=== PATIENT | female | born 1955 | race African-American/Black ===

== ENCOUNTER 2018-08-20 20:51 | Inpatient (IN) | payer BC, MEDICARE ==
[~2018-08-20] VITALS: Ht 165.1 cm; Wt 108.9 kg
[2018-08-20] MEDS ORDERED: SODIUM CHLORIDE 0.9% 1,000 ML IV ONE (21:26)
[2018-08-20] MEDS ORDERED: NITROGLYCERIN OINT 1GM/INCH UDPKT TD ONE (21:30)
[2018-08-20 22:03] LABS: BASOPHILS % 0.9 % (0.0-2.0); HEMATOCRIT. 33.6 % (36.0-48.0); HEMOGLOBIN. 11.3 g/dL (12.0-16.0); LYMPHOCYTES % 38.7 % (20.0-50.0); MEAN CORPUSCULAR HEMOGLOBIN 31.4 pg (28.0-32.0); MEAN CORPUSCULAR VOLUME 93.6 fL (81.0-99.0); MEAN PLATELET VOLUME 7.1 fl (7.4-10.4); MONOCYTES % 8.1 % (2.0-8.0); NEUTROPHILS % 50.3 % (40.0-76.0); PLATELET 193 x1000/uL (130-400); RED BLOOD CELL COUNT 3.59 mill/uL (4.2-5.4); RED CELL DISTRIBUTION WIDTH 13.8 % (11.6-14.6)
[2018-08-20 22:15] LABS: CHLORIDE 106 mEq/L (98-107)
[2018-08-21] MEDS ORDERED: HYDROCODONE/ACETAMINOPHEN 10/325MG TABLET PO ONE (01:15)
[2018-08-21] MEDS ORDERED: GABAPENTIN 400MG CAPSULE PO ONE (01:15)
[2018-08-21] MEDS ORDERED: NA PHOS,M-B/NA PHOS,DI-BA ENEMA 118ML PR PRN (02:45)
[2018-08-21] MEDS ORDERED: CLONIDINE 0.1MG TABLET PO PRN ×2 (02:45→16:15)
[2018-08-21] MEDS ORDERED: MORPHINE SULFATE 4 MG/ML CPJ (NOT FOR IM USE) IV PRN (02:45)
[2018-08-21] MEDS ORDERED: DOCUSATE SODIUM 100MG CAPSULE PO PRN (02:45)
[2018-08-21] MEDS ORDERED: NITROGLYCERIN 0.4MG TABLET SL SL PRN (02:45)
[2018-08-21] MEDS ORDERED: ACETAMINOPHEN 325MG TABLET PO PRN (02:45)
[2018-08-21] MEDS ORDERED: ONDANSETRON HCL 4MG/2ML INJ IV PRN (02:45)
[2018-08-21] MEDS ORDERED: GUAIFENESIN 200MG/10ML SUGAR FREE UDC PO PRN (02:45)
[2018-08-21] MEDS ORDERED: MAGNESIUM/ALUMINUM HYDROXIDE/SIMETHICONE 30ML UDC PO PRN (02:45)
[2018-08-21] MEDS ORDERED: IPRATROPIUM/ALBUTEROL 0.5-3(2.5)MG/3ML NEB INH PRN (02:45)
[2018-08-21] MEDS ORDERED: IOHEXOL-350 100 ML BOTTLE ONE (03:46)
[2018-08-21] MEDS ORDERED: ENOXAPARIN 40MG/0.4ML SYR SUBCUT NR (04:00)
[2018-08-21 06:42] LABS: CREATINE KINASE MB FRACTION 3.7 ng/mL (0.5-3.6)
[2018-08-21] MEDS ORDERED: ASPIRIN 325MG EC TABLET PO SCH (09:00)
[2018-08-21] MEDS: TRAMADOL 50MG TABLET PO PRN ×2 (09:14→23:10)
[2018-08-21] MEDS: ASPIRIN 325MG EC TABLET PO SCH (12:00)
[2018-08-21] MEDS ORDERED: FAMOTIDINE 20MG TABLET PO NR (12:00)
[2018-08-21] MEDS ORDERED: POTASSIUM CHLORIDE 20MEQ TABLET SR PO NR ×2 (12:00→16:00)
[2018-08-21] MEDS ORDERED: ASPIRIN 325MG EC TABLET PO NR (12:30)
[2018-08-21 14:00] LABS: *AMPHETAMINES SCREEN URINE NEGATIVE (NEGATIVE); *BARBITURATES SCREEN URINE NEGATIVE (NEGATIVE); *BENZODIAZEPINES SCREEN URINE NEGATIVE (NEGATIVE); *COCAINE SCREEN URINE NEGATIVE (NEGATIVE); PHENCYCLIDINE URINE SCREEN NEGATIVE (NEGATIVE)
[2018-08-21 14:01] LABS: CANNABINOID URINE SCREEN NEGATIVE (NEGATIVE); METHADONE URINE SCREEN NEGATIVE (NEGATIVE); OPIATES URINE SCREEN PRESUMTIVE POSITIVE (NEGATIVE)
[2018-08-21 15:14] VITALS: BP 156/84
[2018-08-21 16:00] VITALS: BP 171/82
[2018-08-21] MEDS ORDERED: REGADENOSON 0.4 MG/5 ML IV NR (16:00)
[2018-08-21] MEDS ORDERED: CLONIDINE 0.2MG TABLET PO PRN (16:00)
[2018-08-21] MEDS: FAMOTIDINE 20MG TABLET PO SCH ×2 (17:03→20:38)
[2018-08-21] MEDS: AMLODIPINE 2.5MG TABLET PO SCH (17:03)
[2018-08-21] MEDS ORDERED: INFLUENZA VACCINE IM ONE (18:00)
[2018-08-21] MEDS ORDERED: PNEUMOCOCCAL VACCINE IM ONE (18:00)
[2018-08-21 18:08] LABS: CREATINE KINASE MB FRACTION 4.1 ng/mL (0.5-3.6)
[2018-08-21 18:55] VITALS: BP 148/86
[2018-08-21 20:00] VITALS: BP 129/73
[2018-08-21] MEDS: ATORVASTATIN CALCIUM 20MG TABLET PO SCH (20:38)
[2018-08-21] MEDS ORDERED: ZOLPIDEM TARTRATE 5MG TABLET PO PRN (21:00)
[2018-08-22] VITALS (7 sets, daily range): BP systolic 128–157; BP diastolic 61–85
[2018-08-22] MEDS ORDERED: REGADENOSON 0.4 MG/5 ML IV ONE (08:41)
[2018-08-22] MEDS: ASPIRIN 325MG EC TABLET PO SCH (09:00)
[2018-08-22] MEDS: ENOXAPARIN 40MG/0.4ML SYR SUBCUT SCH (09:00)
[2018-08-22] MEDS: AMLODIPINE 2.5MG TABLET PO SCH ×2 (11:30→18:09)
[2018-08-22] MEDS: FAMOTIDINE 20MG TABLET PO SCH ×2 (11:31→20:33)
[2018-08-22 15:56] LABS: BASOPHILS % 0.5 % (0.0-2.0); EOSINOPHILS % 0.9 % (0.0-5.0); HEMATOCRIT. 37.8 % (36.0-48.0); HEMOGLOBIN. 12.8 g/dL (12.0-16.0); LYMPHOCYTES % 34.8 % (20.0-50.0); MEAN CORPUSCULAR HEMOGLOBIN 31.1 pg (28.0-32.0); MEAN CORPUSCULAR VOLUME 92.1 fL (81.0-99.0); MEAN PLATELET VOLUME 7.5 fl (7.4-10.4); MONOCYTES % 5.1 % (2.0-8.0); NEUTROPHILS % 58.7 % (40.0-76.0); PLATELET 215 x1000/uL (130-400); RED BLOOD CELL COUNT 4.11 mill/uL (4.2-5.4); RED CELL DISTRIBUTION WIDTH 13.6 % (11.6-14.6)
[2018-08-22 16:08] LABS: CHLORIDE 106 mEq/L (98-107)
[2018-08-22] MEDS: TRAMADOL 50MG TABLET PO PRN (18:13)
[2018-08-22] MEDS: ATORVASTATIN CALCIUM 20MG TABLET PO SCH (20:33)
[2018-08-23] VITALS: BP 138/71
[2018-08-23 04:00] VITALS: BP 119/56
[2018-08-23 08:00] VITALS: BP 115/56
[2018-08-23] MEDS: AMLODIPINE 2.5MG TABLET PO SCH (08:38)
[2018-08-23] MEDS: FAMOTIDINE 20MG TABLET PO SCH (08:50)
[2018-08-23] MEDS: ASPIRIN 325MG EC TABLET PO SCH (08:50)
[2018-08-23] MEDS: ENOXAPARIN 40MG/0.4ML SYR SUBCUT SCH (08:50)
[2018-08-23] MEDS: TRAMADOL 50MG TABLET PO PRN (08:54)
[2018-08-23 09:37] VITALS: BP 115/56
[2018-08-23] MEDS ORDERED: POTASSIUM CHLORIDE 20MEQ/PACKET PO NR (09:45)
[2018-08-23 12:00] VITALS: BP 143/74
== END 2018-08-23 16:40 | disposition home or self-care (01) | DRG 392 ==
LOC: ER 21:09 → 8WST 22:51 → EDBEDREQ 22:56 → EDBEDREQTM 22:56 → SUPCPDRO 08-21 02:35 → ENRESERV 08-21 13:00
PROVIDERS: ADMIT Internal Medicine; ATTEND Internal Medicine
DX: K21.9 Gastro-esophageal reflux disease without esophagitis (principal); I10 Essential (primary) hypertension; E66.9 Obesity, unspecified; Z68.39 Body mass index [BMI] 39.0-39.9, adult; E78.00 Pure hypercholesterolemia, unspecified; E87.6 Hypokalemia; G89.29 Other chronic pain; M54.9 Dorsalgia, unspecified; I44.0 Atrioventricular block, first degree; Z79.899 Other long term (current) drug therapy
CPT/HCPCS: 36415; 71045; 71275; 78452; 80048; 80061; 80305; 82550; 82553; 83036; 83735; 84443; 84484; 85379; 93005; 93017; 93306; 93970; 96360; 96361; 96372; 97162; 97166; 99285; A9500; J1650; J2270; J2785; J7030; Q9967